=== PATIENT | male | born 1935 | race Hispanic/Latino ===

== ENCOUNTER → 2017-04-25 | Outpatient (CLI) | payer MEDICARE, OTHER ==
[~2017-04-25] MED LIST: Ascorbic Acid,Ester- PO; Aspirin E.C. PO; Cymbalta PO; Feosol PO; Flomax PO; Neurontin PO; Percocet 5/325,Endoc PO; Proscar PO; Toprol XL PO; Tylenol Extra Streng PO; Tylenol/Codeine #3 PO
== END | disposition home or self-care (01) ==
LOC: CDC 14:41
DX: H25.11 Age-related nuclear cataract, right eye (principal); R94.31 Abnormal electrocardiogram [ECG] [EKG]
CPT/HCPCS: 93000